=== PATIENT | male | born 1975 | race Caucasian/White ===

== ENCOUNTER 2018-01-06 15:49 | Emergency (ER) | payer OTHER ==
--- NOTE | 2018-01-06 17:49 | EDPHY ---
H & P Stated Complaint: ETOH DETOX HAD ROSALBA SOBER 3 HRS THEN DRANK LAST MONTH Time Seen by Provider: 01/06/18 17:11 HPI/ROS: CHIEF COMPLAINT: Alcohol withdrawal HISTORY OF PRESENT ILLNESS: 42-year-old male with alcoholism presents with a medication request. He was sober for several months and recently relapsed. He has been drinking a heavy amount of alcohol since October 2017. Last drink was this afternoon. He is afraid to go through alcohol withdrawal and requests Ativan or Librium. He has been through alcohol withdrawal several times in the past, most recently in an inpatient facility. Vomiting x1, does not feel tremulous or nauseous now. REVIEW OF SYSTEMS: complete 10 point ROS negative except at noted in the HPI - Personal History Current Tetanus Diphtheria and Acellular Pertussis (TDAP): Yes Tetanus Vaccine Date: 2012 - Medical/Surgical History Hx Asthma: No Hx Chronic Respiratory Disease: No Hx Diabetes: No Hx Cardiac Disease: No Hx Renal Disease: No Hx Cirrhosis: No Hx Alcoholism: Yes Hx HIV/AIDS: No Hx Splenectomy or Spleen Trauma: No Other PMH: med hx-anxiety and alcohol abuse. surg-none - Social History Smoking Status: Former smoker Alcohol Use: Heavy Drug Use: None - Physical Exam Exam: General Appearance: Alert, pleasant, appears sober, no tremor Eyes: Pupils equal and round, no conjunctival pallor or injection ENT, Mouth: Mucous membranes moist Neck: Normal inspection Respiratory: Lungs are clear to auscultation Cardiovascular: Regular rate and rhythm Gastrointestinal: Abdomen is soft and nontender Neurological: A&O, nonfocal, normal gait Skin: Warm and dry, no rash Extremities: Normal inspection Psychiatric: Mood and affect normal Constitutional: Initial Vital Signs Temperature (C) 36.8 C 01/06/18 15:54 Heart Rate 112 H 01/06/18 15:54 Respiratory Rate 18 01/06/18 15:54 Blood Pressure 134/103 H 01/06/18 15:54 O2 Sat (%) 92 01/06/18 15:54 O2 Delivery Mode Room Air Allergies/Adverse Reactions: No Known Allergies Allergy (Verified 01/06/18 15:53) Home Medications: Medication Instructions Recorded ALPRAZolam [Xanax 0.5 MG (RX)] 0.5 mg PO TID 03/31/13 chlordiazePOXIDE [Librium 25 mg 1 - 2 cap PO Q6 PRN #12 cap 01/06/18 (*)] Medical Decision Making ED Course/Re-evaluation: After a lengthy discussion this patient, I decided to give pt a short course of Librium for alcohol withdrawal. I have strongly encouraged him to follow up with a primary care physician as well as at the [facility]. Departure - Departure Disposition: Home, Routine, Self-Care Clinical Impression: Alcohol dependence Qualifiers: Substance use status: uncomplicated Qualified Code(s): F10.20 - Alcohol dependence, uncomplicated Condition: Good Instructions: Alcohol Withdrawal (ED) Additional Instructions: Return for worsening symptoms or any concerns. Referrals: [facility] Detox 24 Hours [Outside] - As per Instructions Seth Sam MD [Medical Doctor] - 2-3 days, call for appt. Prescriptions: chlordiazePOXIDE [Librium 25 mg (*)] 1 - 2 cap PO Q6 PRN #12 cap PRN Reason: for alcohol withdrawal
[2018-01-06 17:59] VITALS: BP 145/87
== END 2018-01-06 17:58 | disposition home or self-care (01) ==
DX: F10.20 Alcohol dependence, uncomplicated (principal); Z87.891 Personal history of nicotine dependence